=== PATIENT | female | born 1970 | race Caucasian/White ===

== ENCOUNTER 2022-01-13 12:59 | Emergency (ER) | payer OTHER ==
[~2022-01-13] VITALS: Ht 152.4 cm; Wt 61.2 kg
== END 2022-01-13 17:02 | disposition home or self-care (01) ==
LOC: ER 12:59
DX: R07.89 Other chest pain (principal)

== ENCOUNTER 2022-09-02 15:04 | Emergency (ER) | payer OTHER ==
[~2022-09-02] VITALS: Ht 152.4 cm; Wt 61.2 kg
== END 2022-09-02 21:04 | disposition home or self-care (01) ==
LOC: ER 15:04
DX: R51.9 Headache, unspecified (principal)

== ENCOUNTER → 2025-02-25 | Emergency (ER) | payer OTHER ==
[~2025-02-25] VITALS: Ht 152.4 cm; Wt 56.7 kg
[~2025-02-25] MED LIST: KETOROLAC TROMETHAMINE 10 MG TABLET PO ONE
[2025-02-25 17:13] LABS: BASO % 0.5 % (0.1-1.2); EOS # 0.15 (0.04-0.54); EOS % 2.3 % (0.7-7.0); LYMPH # 2.71 (1.18-3.74); LYMPH % 41.6 % (19.3-53.1); MEAN PLATELET VOLUME 9.40 fl (9.4-12.4); MONO # 0.44 (0.24-0.82); MONO % 6.8 % (4.7-12.5); NEUT # 3.17 (1.56-6.13); NEUT % 48.6 % (34.0-71.1); RED CELL DISTRIBUTION WIDTH 12.0 % (11.6-14.4)
[2025-02-25 17:58] LABS: ALT/SGPT 20.0 U/L (12-78); AST/SGOT 14.0 U/L (15-37); BILIRUBIN TOTAL 0.45 mg/dL (0.3-1.2); BUN CREA RATIO 23.0 (7.0-25.0); CREATININE SERUM 0.6 mg/dL (0.55-1.02); GFR 104.98; GLOBULINA 4.0 G/DL (2.4-3.5); GLUCOSE FASTING 94.0 mg/dL (65-100); OSMOLALITY SERUM 278.0 MOSM/KG (275-295)
== END | disposition home or self-care (01) ==
LOC: ER 13:17
PROVIDERS: General Practice
DX: M54.50 Low back pain, unspecified (principal); R29.898 Other symptoms and signs involving the musculoskeletal system